=== PATIENT | male | born 1990 | race African-American/Black ===

== ENCOUNTER 2021-02-16 11:22 | Emergency (ER) | payer MEDICAID ==
[~2021-02-16] VITALS: Ht 170.2 cm; Wt 59.0 kg
[2021-02-16] MEDS ORDERED: KETOROLAC 15MG/ML VIAL IV ONE (12:00)
[2021-02-16 12:34] LABS: BASOPHILS % 0.4 % (0.0-2.0); EOSINOPHILS % 2.6 % (0.0-5.0); LYMPHOCYTES % 29.7 % (20.0-50.0); MEAN CORPUSCULAR HEMOGLOBIN 25.5 pg (28.0-32.0); MEAN CORPUSCULAR VOLUME 76.2 fL (80.0-94.0); MEAN PLATELET VOLUME 8.4 fl (7.4-10.4); MONOCYTES % 10.1 % (2.0-8.0); NEUTROPHILS % 57.2 % (40.0-76.0); PLATELET 230 x1000/uL (130-400); RED BLOOD CELL COUNT 5.91 mill/uL (4.7-6.1); RED CELL DISTRIBUTION WIDTH 15.2 % (11.6-14.6)
[2021-02-16 12:41] LABS: CHLORIDE 105 mEq/L (98-107)
[2021-02-16 12:46] LABS: ETHANOL BLOOD < 10 mg/dL
[2021-02-16 14:21] LABS: *COCAINE SCREEN URINE NEGATIVE (NEGATIVE); METHADONE URINE SCREEN NEGATIVE (NEGATIVE); OPIATES URINE SCREEN NEGATIVE (NEGATIVE)
[2021-02-16 14:22] LABS: *AMPHETAMINES SCREEN URINE PRESUMTIVE POSITIVE (NEGATIVE); *BENZODIAZEPINES SCREEN URINE NEGATIVE (NEGATIVE); PHENCYCLIDINE URINE SCREEN NEGATIVE (NEGATIVE)
[2021-02-16 14:23] LABS: CANNABINOID URINE SCREEN NEGATIVE (NEGATIVE)
[2021-02-16 14:24] LABS: *BARBITURATES SCREEN URINE NEGATIVE (NEGATIVE)
[2021-02-16] MEDS ORDERED: IOHEXOL-300 100 ML BOTTLE ONE (15:07)
[2021-02-16] MEDS ORDERED: COLC0.6C3 MT (17:23)
[2021-02-16] MEDS ORDERED: IBUP-2029 MT (17:23)
[2021-02-16] MEDS ORDERED: COLCHICINE 0.6MG TABLET PO ONE (17:30)
[2021-02-16] MEDS ORDERED: MORPHINE SULFATE 4 MG/ML CPJ (NOT FOR IM USE) IV ONE (18:30)
[2021-02-16 20:40] VITALS: BP 111/67
== END 2021-02-16 20:38 | disposition home or self-care (01) ==
LOC: ER 11:22 → EDBEDREQ 18:24 → EDBEDREQTM 18:24 → EDBEDREQ 18:27 → ENRESERV 19:50 → CANRESERV 19:50 → ER 20:38 → CANRESERV 02-17 07:20 → ENRESERV 02-17 07:20 → CANBEDREQ 02-17 16:34
DX: R10.13 Epigastric pain (principal); R53.83 Other fatigue; I10 Essential (primary) hypertension; F15.10 Other stimulant abuse, uncomplicated; F12.10 Cannabis abuse, uncomplicated; Z79.899 Other long term (current) drug therapy; Z98.890 Other specified postprocedural states
CPT/HCPCS: 36415; 71045; 74177; 80053; 80305; 80320; 83690; 83880; 84484; 85025; 93005; 96374; 96375; 99285; J1885; J2270; Q9967; G0480